=== PATIENT | female | born 1970 | race African-American/Black ===

== ENCOUNTER 2020-04-11 04:14 | Emergency (ER) | payer MEDICAID ==
[~2020-04-11] VITALS: Ht 157.5 cm; Wt 81.0 kg
[2020-04-11 05:09] LABS: BASOPHILS % 1.4 % (0.0-2.0); EOSINOPHILS % 4.1 % (0.0-5.0); HEMATOCRIT. 36.9 % (36.0-48.0); LYMPHOCYTES % 45.6 % (20.0-50.0); MEAN CORPUSCULAR HEMOGLOBIN 25.9 pg (28.0-32.0); MEAN CORPUSCULAR VOLUME 79.5 fL (81.0-99.0); MONOCYTES % 5.3 % (2.0-8.0); NEUTROPHILS % 43.6 % (40.0-76.0); PLATELET 293 x1000/uL (130-400); RED BLOOD CELL COUNT 4.64 mill/uL (4.2-5.4); RED CELL DISTRIBUTION WIDTH 17.1 % (11.6-14.6)
[2020-04-11 05:16] LABS: CHLORIDE 108 mEq/L (98-107)
[2020-04-11 05:20] LABS: ETHANOL BLOOD 271 mg/dL
[2020-04-11] MEDS ORDERED: IPRATROPIUM BROMIDE (0.02%) 0.5MG/2.5ML NEB HHN STA (06:30)
[2020-04-11] MEDS ORDERED: PREDNISONE 20MG TABLET PO STA (06:30)
[2020-04-11] MEDS ORDERED: IBUPROFEN 800MG TABLET PO ONE (06:30)
[2020-04-11] MEDS ORDERED: METOCLOPRAMIDE HCL 10MG TABLET PO ONE (06:30)
[2020-04-11] MEDS ORDERED: ALBUTEROL (0.083%) 2.5MG/3ML NEB HHN STA (06:30)
[2020-04-11 10:19] VITALS: BP 150/78
== END 2020-04-11 10:20 | disposition home or self-care (01) ==
LOC: ER 04:14
DX: R06.02 Shortness of breath (principal); R51 Headache; F10.10 Alcohol abuse, uncomplicated; Y90.8 Blood alcohol level of 240 mg/100 ml or more
CPT/HCPCS: 36415; 80053; 80307; 80320; 80329; 84443; 85025; 93005; 94640; 99284; J7512; Z7610; G0480

== ENCOUNTER 2020-06-09 00:49 | Emergency (ER) | payer MEDICAID ==
[~2020-06-09] VITALS: Ht 157.5 cm; Wt 82.0 kg
[2020-06-09] MEDS ORDERED: PREDNISONE 20MG TABLET PO STA (01:29)
[2020-06-09] MEDS ORDERED: ALBUTEROL (0.083%) 2.5MG/3ML NEB HHN STA (01:29)
[2020-06-09] MEDS ORDERED: IPRATROPIUM BROMIDE (0.02%) 0.5MG/2.5ML NEB HHN STA (01:29)
[2020-06-09] MEDS ORDERED: OLANZAPINE 5MG TABLET ODT PO ONE (01:30)
[2020-06-09] MEDS ORDERED: ACETAMINOPHEN 650MG/20.3ML UDC PO ONE (02:00)
[2020-06-09] MEDS ORDERED: OLANZAPINE 10 MG/VIAL IM ONE (02:00)
[2020-06-09] MEDS ORDERED: LORAZEPAM 2MG/ML CPJ IM ONE (02:00)
[2020-06-09 03:06] LABS: BASOPHILS % 1.3 % (0.0-2.0); EOSINOPHILS % 2.4 % (0.0-5.0); HEMATOCRIT. 34.9 % (36.0-48.0); HEMOGLOBIN. 11.3 g/dL (12.0-16.0); LYMPHOCYTES % 44.3 % (20.0-50.0); MEAN CORPUSCULAR HEMOGLOBIN 26.5 pg (28.0-32.0); MEAN PLATELET VOLUME 8.1 fl (7.4-10.4); MONOCYTES % 5.9 % (2.0-8.0); NEUTROPHILS % 46.1 % (40.0-76.0); PLATELET 254 x1000/uL (130-400); RED BLOOD CELL COUNT 4.26 mill/uL (4.2-5.4); RED CELL DISTRIBUTION WIDTH 18.1 % (11.6-14.6)
[2020-06-09 03:08] LABS: CHLORIDE 111 mEq/L (98-107)
[2020-06-09 03:13] LABS: ETHANOL BLOOD 179 mg/dL
[2020-06-09 05:02] LABS: CLARITY URINE CLOUDY (CLEAR); COLOR URINE YELLOW (YELLOW); KETONES URINE NEGATIVE (NEGATIVE); LEUKOCYTE ESTERASE URINE NEGATIVE (NEGATIVE); NITRITE URINE NEGATIVE (NEGATIVE); OCCULT BLOOD URINE NEGATIVE (NEGATIVE); PH URINE 8.5 (4.5-8.0); PROTEIN URINE NEGATIVE (NEGATIVE); SPECIFIC GRAVITY URINE 1.014 (1.005-1.030); UROBILINOGEN URINE 0.2 E.U./dL (0.2-1.0)
[2020-06-09 05:50] LABS: *AMPHETAMINES SCREEN URINE NEGATIVE (NEGATIVE); *BARBITURATES SCREEN URINE NEGATIVE (NEGATIVE); *BENZODIAZEPINES SCREEN URINE NEGATIVE (NEGATIVE); *COCAINE SCREEN URINE NEGATIVE (NEGATIVE)
[2020-06-09 05:51] LABS: CANNABINOID URINE SCREEN NEGATIVE (NEGATIVE); METHADONE URINE SCREEN NEGATIVE (NEGATIVE); OPIATES URINE SCREEN NEGATIVE (NEGATIVE); PHENCYCLIDINE URINE SCREEN NEGATIVE (NEGATIVE)
[2020-06-09 13:52] VITALS: BP 126/78
== END 2020-06-09 13:59 | disposition home or self-care (01) ==
LOC: ER 01:03
DX: F10.129 Alcohol abuse with intoxication, unspecified (principal); Y90.6 Blood alcohol level of 120-199 mg/100 ml; F19.10 Other psychoactive substance abuse, uncomplicated; F20.9 Schizophrenia, unspecified; I10 Essential (primary) hypertension; J45.909 Unspecified asthma, uncomplicated
CPT/HCPCS: 36415; 80053; 80305; 80320; 81003; 85025; 93005; 94640; 99285; J2060; J3490; J7512; Z7610; G0480

== ENCOUNTER 2020-07-29 04:12 | Emergency (ER) | payer MEDICAID ==
[~2020-07-29] VITALS: Ht 157.5 cm; Wt 69.0 kg
[2020-07-29] MEDS ORDERED: LORAZEPAM 1MG TABLET PO ONE (04:45)
[2020-07-29 13:40] VITALS: BP 129/76
== END 2020-07-29 13:45 | disposition home or self-care (01) ==
LOC: ER 04:12
DX: F41.0 Panic disorder [episodic paroxysmal anxiety] (principal); R03.0 Elevated blood-pressure reading, without diagnosis of hypertension
CPT/HCPCS: 99285

== ENCOUNTER 2020-08-08 15:44 | Emergency (ER) | payer MEDICAID ==
[~2020-08-08] VITALS: Ht 162.6 cm; Wt 61.0 kg
[2020-08-08] MEDS ORDERED: ASPIRIN 81MG TABLET PO ONE (16:30)
[2020-08-08] MEDS ORDERED: NITROGLYCERIN 0.4MG TABLET SL SL PRN (16:30)
[2020-08-08 18:45] LABS: BASOPHILS % 2.1 % (0.0-2.0); HEMOGLOBIN. 13.4 g/dL (12.0-16.0); LYMPHOCYTES % 42.6 % (20.0-50.0); MEAN CORPUSCULAR HEMOGLOBIN 26.3 pg (28.0-32.0); MEAN CORPUSCULAR VOLUME 80.5 fL (81.0-99.0); MEAN PLATELET VOLUME 7.7 fl (7.4-10.4); MONOCYTES % 5.4 % (2.0-8.0); NEUTROPHILS % 48.9 % (40.0-76.0); PLATELET 299 x1000/uL (130-400); RED BLOOD CELL COUNT 5.09 mill/uL (4.2-5.4); RED CELL DISTRIBUTION WIDTH 15.2 % (11.6-14.6)
[2020-08-08 18:51] LABS: CHLORIDE 104 mEq/L (98-107)
[2020-08-08 20:26] LABS: HCG SCREEN NEGATIVE
[2020-08-08 22:13] VITALS: BP 138/62
== END 2020-08-08 22:18 | disposition home or self-care (01) ==
LOC: ER 15:49
DX: R07.89 Other chest pain (principal); I10 Essential (primary) hypertension; J45.909 Unspecified asthma, uncomplicated; F20.9 Schizophrenia, unspecified
CPT/HCPCS: 36415; 71045; 80053; 83880; 84484; 84703; 85025; 93005; 99285; Z7610

== ENCOUNTER 2020-08-09 11:13 | Emergency (ER) | payer MEDICAID ==
[~2020-08-09] VITALS: Ht 157.5 cm; Wt 73.0 kg
[2020-08-09 11:37] VITALS: BP 135/70
== END 2020-08-09 11:48 | disposition left against medical advice (07) ==
LOC: ER 11:13
DX: Z53.21 Procedure and treatment not carried out due to patient leaving prior to being seen by health care provider (principal)